=== PATIENT | male | born 1960 | race Two or more races ===

== ENCOUNTER 2017-02-14 18:57 | Emergency (ER) | payer SELFPAY ==
[2017-02-14 19:25] LABS: BASO % 0 % (0-3); EOS % 0 % (0-3); HEMATOCRIT 45.8 % (39.0-53.0); HEMOGLOBIN 15.6 g/dL (13.0-17.5); LYMPH # 2.6 x10^3/uL (1.0-4.8); LYMPH % 23 % (24-48); MEAN CORPUSCULAR HEMOGLOBIN 29 pg (25-35); MEAN CORPUSCULAR HGB CONC 34 g/dL (31-37); MEAN CORPUSCULAR VOLUME 85 fL (79-100); MONO % 7 % (0-9); NEUT % 70 % (31-73); PLATELET COUNT 349 x10^3/uL (140-400); RED BLOOD COUNT 5.37 x10^6/uL (4.30-5.70); RED CELL DISTRIBUTION WIDTH 13.6 % (11.5-14.5); WHITE BLOOD COUNT 11.4 x10^3/uL (4.0-11.0)
[2017-02-14] MEDS ORDERED: ONDANSETRON PF 4 MG/2 ML VIAL. IV ONE (19:30)
[2017-02-14] MEDS ORDERED: PANTOPRAZOLE IV PUSH 40 MG VIAL. IVP ONE (19:30)
[2017-02-14] MEDS ORDERED: MORPHINE SULFATE 10 MG/ML VIAL. IV ONE (19:30)
[2017-02-14] MEDS ORDERED: IV NORMAL SALINE 1000ML BAG 1,000 ML IV ONE (19:30)
[2017-02-14 19:36] LABS: CALCIUM 9.1 mg/dL (8.5-10.1); CREATININE 0.6 mg/dL (0.7-1.3); GFR 139.9; POTASSIUM 3.8 mmol/L (3.5-5.1)
[2017-02-14 19:39] LABS: PROTHROMBIN TIME PATIENT 12.2 SEC (11.7-14.0)
[2017-02-14 19:42] LABS: ALBUMIN 3.8 g/dL (3.4-5.0); ALBUMIN/GLOBULIN RATIO 1.1 (1.0-1.7); MAGNESIUM 1.8 mg/dL (1.8-2.4); TOTAL BILIRUBIN 0.7 mg/dL (0.2-1.0); TOTAL PROTEIN 7.2 g/dL (6.4-8.2)
[2017-02-14] MEDS ORDERED: CONTRAST GIVEN MC PRN (19:45)
[2017-02-14] MEDS ORDERED: IOHEXOL 300 MG/ML 75 ML VIAL IV ONE (19:45)
--- NOTE | 2017-02-14 20:05 | PHYS DOC ---
Past Medical History Past Medical History: No Pertinent History Past Surgical History: No Surgical History Alcohol Use: None Drug Use: None Adult General Chief Complaint Chief Complaint: ABDOMINAL PAIN HPI HPI Patient is a 56 year old male presenting to the emergency department for evaluation of right upper quadrant and epigastric pain that has been going on for the past 3 days and it is associated with nausea vomiting and diarrhea. Emesis is nonbloody nonbilious and he has not vomited since 3 PM today but has some dry heaves. Diarrhea is nonbloody. Abdominal pain is a fullness sensation and he denies any chest pain shortness of breath or diaphoresis. Patient denies any prior abdominal surgeries. He says he does not drink alcohol. He is in no obvious distress with normal vital signs. Review of Systems Review of Systems Constitutional: Denies fever or chills [] Eyes: Denies change in visual acuity, redness, or eye pain [] HENT: Denies nasal congestion or sore throat [] Respiratory: Denies cough or shortness of breath [] Cardiovascular: No additional information not addressed in HPI [] GI: + abdominal pain, nausea, vomiting, diarrhea [] : Denies dysuria or hematuria [] Musculoskeletal: Denies back pain or joint pain [] Integument: Denies rash or skin lesions [] Neurologic: Denies headache, focal weakness or sensory changes [] Current Medications Current Medications Current Medications Medications (Trade) Dose Ordered Sig/Jojo Start Time Stop Time Status Last Admin Dose Admin Info (Do NOT chart on this entry -- for MONITORING) 1 each PRN DAILY PRN 02/14/17 19:45 02/16/17 19:44 Iohexol (Omnipaque 300 Mg/ml) 75 ml 1X ONCE 02/14/17 19:45 02/14/17 19:46 DC 02/14/17 19:48 75 ML Morphine Sulfate 5 mg 1X ONCE 02/14/17 19:30 02/14/17 19:31 DC 02/14/17 19:37 5 MG Ondansetron HCl (Zofran) 8 mg 1X ONCE 02/14/17 19:30 02/14/17 19:31 DC 02/14/17 19:36 8 MG Pantoprazole Sodium (Protonix Vial) 40 mg 1X ONCE 02/14/17 19:30 02/14/17 19:31 DC 02/14/17 19:37 40 MG Sodium Chloride 1,000 ml @ 1,000 mls/hr 1X ONCE 02/14/17 19:30 02/14/17 20:29 DC 02/14/17 19:37 1,000 MLS/HR Allergies Allergies Allergies Coded Allergies Type Severity Reaction Last Updated Verified No Known Drug Allergies 02/14/17 No Physical Exam Physical Exam Constitutional: Well developed, well nourished, no acute distress, non-toxic appearance. [] HENT: Normocephalic, atraumatic, bilateral external ears normal, oropharynx moist, no oral exudates, nose normal. [] Eyes: PERRLA, EOMI, conjunctiva normal, no discharge. [] Neck: Normal range of motion, no tenderness, supple, no stridor. [] Cardiovascular:Heart rate regular rhythm, no murmur [] Lungs & Thorax: Bilateral breath sounds clear to auscultation [] Abdomen: Bowel sounds normal, soft, + epigastric and RUQ tenderness, no masses, no pulsatile masses. [] Skin: Warm, dry, no erythema, no rash. [] Back: No tenderness, no CVA tenderness. [] Extremities: No tenderness, no cyanosis, no clubbing, ROM intact, no edema. [] Neurologic: Alert and oriented X 3, normal motor function, normal sensory function, no focal deficits noted. [] Current Patient Data Vital Signs Vital Signs Date Time Temp Pulse Resp B/P (MAP) Pulse Ox O2 Delivery O2 Flow Rate FiO2 02/14/17 19:13 99.7 69 16 159/84 (109) 97 Room Air 99.7 Lab Values Laboratory Tests Test 02/14/17 19:14 02/14/17 19:44 02/14/17 20:10 White Blood Count 11.4 x10^3/uL (4.0-11.0) H Red Blood Count 5.37 x10^6/uL (4.30-5.70) Hemoglobin 15.6 g/dL (13.0-17.5) Hematocrit 45.8 % (39.0-53.0) Mean Corpuscular Volume 85 fL (79-100) Mean Corpuscular Hemoglobin 29 pg (25-35) Mean Corpuscular Hemoglobin Concent 34 g/dL (31-37) Red Cell Distribution Width 13.6 % (11.5-14.5) Platelet Count 349 x10^3/uL (140-400) Neutrophils (%) (Auto) 70 % (31-73) Lymphocytes (%) (Auto) 23 % (24-48) L Monocytes (%) (Auto) 7 % (0-9) Eosinophils (%) (Auto) 0 % (0-3) Basophils (%) (Auto) 0 % (0-3) Neutrophils # (Auto) 8.0 x10^3uL (1.8-7.7) H Lymphocytes # (Auto) 2.6 x10^3/uL (1.0-4.8) Monocytes # (Auto) 0.8 x10^3/uL (0.0-1.1) Eosinophils # (Auto) 0.0 x10^3/uL (0.0-0.7) Basophils # (Auto) 0.0 x10^3/uL (0.0-0.2) Prothrombin Time 12.2 SEC (11.7-14.0) Prothrombin Time INR 1.0 (0.8-1.1) PTT 28 SEC (24-38) Sodium Level 139 mmol/L (136-145) Potassium Level 3.8 mmol/L (3.5-5.1) Chloride Level 104 mmol/L (98-107) Carbon Dioxide Level 24 mmol/L (21-32) Anion Gap 11 (6-14) Blood Urea Nitrogen 8 mg/dL (8-26) Creatinine 0.6 mg/dL (0.7-1.3) L Estimated GFR (Cockcroft-Gault) 139.9 BUN/Creatinine Ratio 13 (6-20) Glucose Level 117 mg/dL (70-99) H Calcium Level 9.1 mg/dL (8.5-10.1) Magnesium Level 1.8 mg/dL (1.8-2.4) Total Bilirubin 0.7 mg/dL (0.2-1.0) Aspartate Amino Transferase (AST) 17 U/L (15-37) Alanine Aminotransferase (ALT) 17 U/L (16-63) Alkaline Phosphatase 111 U/L (46-116) Creatine Kinase 100 U/L (39-308) Troponin I Quantitative < 0.017 ng/mL (0.000-0.055) KD-Irg-I-Type Natriuretic Peptide 151 pg/mL (0-124) H Total Protein 7.2 g/dL (6.4-8.2) Albumin 3.8 g/dL (3.4-5.0) Albumin/Globulin Ratio 1.1 (1.0-1.7) Lipase 118 U/L (73-393) Ethyl Alcohol Level < 10 mg/dL (0-10) Lactic Acid Level 1.1 mmol/L (0.4-2.0) Urine Collection Type Void Urine Color Yellow Urine Clarity Clear Urine pH 6.0 Urine Specific Jordan >=1.030 Urine Protein Negative mg/dL (NEG-TRACE) Urine Glucose (UA) Negative mg/dL (NEG) Urine Ketones (Stick) 15 mg/dL (NEG) Urine Blood Trace (NEG) Urine Nitrite Negative (NEG) Urine Bilirubin Negative (NEG) Urine Urobilinogen Dipstick 0.2 mg/dL (0.2 mg/dL) Urine Leukocyte Esterase Trace (NEG) Urine RBC 1-2 /HPF (0-2) Urine WBC 1-4 /HPF (0-4) Urine Squamous Epithelial Cells None /LPF Urine Bacteria 0 /HPF (0-FEW) Urine Mucus Marked /LPF Urine Opiates Screen Pos (NEG) Urine Methadone Screen Neg (NEG) Urine Barbiturates Neg (NEG) Urine Phencyclidine Screen Neg (NEG) Urine Amphetamine/Methamphetamine Neg (NEG) Urine Benzodiazepines Screen Neg (NEG) Urine Cocaine Screen Neg (NEG) Urine Cannabinoids Screen Neg (NEG) Urine Ethyl Alcohol Neg (NEG) Laboratory Tests 02/14/17 19:14 Laboratory Tests 02/14/17 19:14 EKG EKG [] Radiology/Procedures Radiology/Procedures PROCEDURE CT abdomen and pelvis with contrast HISTORY Severe right upper quadrant abdominal pain, nausea and vomiting TECHNIQUE Exposure: One or more of the following individualized dose reduction techniques were utilized for this exam: 1. Automated exposure control. 2. Adjustment of the mA and/or kV according to patient size. 3. Use of iterative reconstruction technique. Helical CT imaging of the abdomen and pelvis with 75 milliliters Omnipaque 300 intravenous contrast COMPARISON No prior FINDINGS Abdomen: Congenital narrow lumbar spinal canal. 2 centimeter gallstone. There may be subtle pericholecystic fluid or edema at the gallbladder fossa. Kidneys, adrenals, pancreas, spleen and liver are unremarkable. Appendix is negative. No obstruction or inflammation of the GI tract. Calcified plaque of the aorta or iliac arteries. No abdominal fluid. No adenopathy. Lung bases unremarkable. Pelvis: Bladder, prostate, rectum and bones are unremarkable. No fluid or adenopathy. IMPRESSION 1. Cholelithiasis. There may be subtle pericholecystic fluid or edema at the gallbladder fossa which could indicate early changes of cholecystitis. 2. The appendix is negative. Electronically signed by: Reid Cagle MD (February 14, 2017 20:22:53) DICTATED and SIGNED BY: REID CAGLE MD DATE: 02/14/172021 Course & Med Decision Making Course & Med Decision Making Will get labs CT and reassess. Patient's pain and nausea much improved and he is able to drink fluids without difficulty. I am quite worried that he has an infectious cholecystitis and I strongly recommended admission. Patient refused stating that he feels better and wants to go home. I told him I would like to tell him with the linkage line building superintendent but he refused stating his friend is translating appropriately and he does not need further translation. I told him that there is a high likelihood that he would start feeling bad again and he would need to come back to the emergency department. Him pain and nausea meds and refer him to general surgery but told him if he is feeling worse with fevers chills further pain or vomiting he should come back to the emergency Department immediately. He shouldn't aware and agreeable with plan and verbalized understanding of the above instructions. Dragon Disclaimer Dragon Disclaimer This electronic medical record was generated, in whole or in part, using a voice recognition dictation system. Departure Departure Impression: Primary Impression: Cholecystitis Disposition: 01 HOME, SELF-CARE Condition: IMPROVED Referrals: CRICKET FRANK MD Patient Instructions: Cholecystitis Additional Instructions: DRINK PLENTY OF FLUIDS AND AVOID EATING FATTY OR IRRITATING FOODS. THANK YOU! Scripts Ondansetron (ZOFRAN ODT) 4 Mg Tab.rapdis 4 MG PO BID Y for NAUSEA/VOMITING, #10 TAB Prov: ROMEO DILL DO 02/14/17 Hydrocodone/Apap 5-325 (NORCO 5-325 TABLET) 1 Each Tablet 1 TAB PO PRN Q6HRS Y for PAIN, #20 TAB 0 Refills Prov: ROMEO DILL DO 02/14/17 ROMEO DILL DO February 14, 2017 20:05
--- NOTE | 2017-02-14 20:24 | RAD ---
PROCEDURE CT abdomen and pelvis with contrast HISTORY Severe right upper quadrant abdominal pain, nausea and vomiting TECHNIQUE Exposure: One or more of the following individualized dose reduction techniques were utilized for this exam: 1. Automated exposure control. 2. Adjustment of the mA and/or kV according to patient size. 3. Use of iterative reconstruction technique. Helical CT imaging of the abdomen and pelvis with 75 milliliters Omnipaque 300 intravenous contrast COMPARISON No prior FINDINGS Abdomen: Congenital narrow lumbar spinal canal. 2 centimeter gallstone. There may be subtle pericholecystic fluid or edema at the gallbladder fossa. Kidneys, adrenals, pancreas, spleen and liver are unremarkable. Appendix is negative. No obstruction or inflammation of the GI tract. Calcified plaque of the aorta or iliac arteries. No abdominal fluid. No adenopathy. Lung bases unremarkable. Pelvis: Bladder, prostate, rectum and bones are unremarkable. No fluid or adenopathy. IMPRESSION 1. Cholelithiasis. There may be subtle pericholecystic fluid or edema at the gallbladder fossa which could indicate early changes of cholecystitis. 2. The appendix is negative. Electronically signed by: Lamont Cagle MD (February 14, 2017 20:22:53)
[2017-02-14 20:28] LABS: BILIRUBIN,URINE NEGATIVE (NEG); GLUCOSE,URINE NEGATIVE (NEG); NITRITE,URINE NEGATIVE (NEG); PROTEIN,URINE NEGATIVE (NEG-TRACE); UROBILINOGEN,URINE 0.2 mg/dL (0.2 mg/dL)
[2017-02-14 20:35] LABS: BARBITURATES NEG (NEG); BENZODIAZEPINES NEG (NEG); CANNABINOIDS NEG (NEG); COCAINE NEG (NEG); METHADONE NEG (NEG); OPIATES POS (NEG); PHENCYCLIDINE NEG (NEG)
[2017-02-14 20:36] LABS: BACTERIA,URINE 0 /HPF (0-FEW)
[2017-02-14] MEDS ORDERED: HYDR-971 PO (20:56)
[2017-02-14] MEDS ORDERED: ONDA4TAB10 PO (20:56)
[2017-02-14 21:00] VITALS: BP 166/83
--- NOTE | 2017-02-15 06:02 | EKG ---
[facility] [address] [place] [id number] Test Date: 2017-02-14 Test Time: 19:24:23 Pat Name: JULITO MARY Department: Room: Gender: M [employer] Receiving Clerk: : [id number] Requested By: ROEMO DILL Order Number: [id number] Reading MD: Zachary Bravo Measurements Intervals [place] Rate: 63 P: 64 MT: 146 QRS: -53 QRSD: 88 T: 53 QT: 386 QTc: 398 Interpretive Statements SINUS RHYTHM Electronically Signed On 02-18-2017 9:32:48 CDT by Zachary Bravo
== END 2017-02-14 21:15 | disposition home or self-care (01) ==
LOC: EDSEX 18:57 → ER 18:57
DX: K81.9 Cholecystitis, unspecified (principal)
CPT/HCPCS: 36415; 74177; 80053; 80305; 80320; 81001; 82550; 83605; 83690; 83735; 83880; 84484; 85027; 85610; 85730; 87086; 93005; 96361; 96374; 96375; 99285; C9113; J2270; J2405; J7030; Q9967; G0480; G0481